=== PATIENT | male | born 1980 | race Caucasian/White ===

== ENCOUNTER 2020-06-13 14:39 | Emergency (ER) | payer MEDICAID, OTHER ==
[~2020-06-13] VITALS: Ht 190.5 cm; Wt 181.4 kg
[2020-06-13 14:47] VITALS: BP_SYST 159
[2020-06-13 15:35] VITALS: BP_SYST 154
== END 2020-06-13 15:35 | disposition home or self-care (01) ==
LOC: SED 14:39
DX: M13.871 Other specified arthritis, right ankle and foot (principal)
CPT/HCPCS: 99283

== ENCOUNTER 2020-08-17 21:16 | Inpatient (IN) | payer OTHER, SELFPAY ==
[~2020-08-17] VITALS: Ht 190.5 cm; Wt 173.7 kg
--- NOTE | 2020-08-17 21:20 | NUR ---
PT TO REMAIN IN ER LOBBY UNTIL ER BED BECOMES AVAILABLE
[2020-08-17 21:25] VITALS: BP_SYST 162
--- NOTE | 2020-08-17 21:25 | NUR ---
PT AAO AND AMBULATORY REPORTING HIGH BLOOD SUGAR TODAY. PT WAS DIAGNOSED WITH DIABETES TODAY AND STARTED TAKING METFORMIN. PT BS HAS REMAINED IN THE 400'S ALL DAY AND PT IS EXCESSIVELY SWEATING AND URINATING.
--- NOTE | 2020-08-17 22:22 | NUR ---
Placed in room 5 . Placed on ekg monitor, blood pressure machine and pulse oximeter. To gown for exam. Side rails up.
--- NOTE | 2020-08-17 22:28 | NUR ---
BG ACCUCHECK 475
[2020-08-17] MEDS ORDERED: NACL 0.9% 1,000 ML IV ONE (22:30)
[2020-08-17 23:00] LABS: BILIRUBIN,URINE NEGATIVE (NEGATIVE); CLARITY/URINE CLEAR (CLEAR); COLOR,URINE YELLOW (YELLOW); GLUCOSE,URINE 3+ (NEGATIVE); KETONES,URINE TRACE (NEGATIVE); LEUKOCYTE ESTERASE ,URINE NEGATIVE (NEGATIVE); NITRITE, URINE NEGATIVE (NEGATIVE); PH,URINE 5.5 (5.0-8.0); PROTEIN URINE 2+ (NEGATIVE); UROBILINOGEN,URINE 0.2 (0.2-1.0)
[2020-08-17 23:03] LABS: BLOOD, URINE TRACE (NEGATIVE)
[2020-08-17 23:04] LABS: ACETONE, URINE 2+ (NEGATIVE)
[2020-08-17 23:15] LABS: BACTERIA,URINE FEW /HPF (None Seen); RBC,URINE 0-3 /HPF (0-3); WBC,URINE 0-3 /HPF (0-3)
[2020-08-17 23:26] LABS: BASOPHILS % (AUTO) 0.5 % (0.0-2.0); EOSINOPHILS # (AUTO) 0.2 K/uL (0.0-0.4); EOSINOPHILS % (AUTO) 1.9 % (0.0-4.0); HEMATOCRIT 47.5 % (36-54); HEMOGLOBIN 16.7 g/dL (14.0-18.0); LYMPHOCYTES % (AUTO) 31.4 % (20.5-51.5); MEAN CORPUSCULAR HEMOGLOBIN 31 pg (27-31); MEAN CORPUSCULAR HGB CONC 35 % (32-36); MEAN CORPUSCULAR VOLUME 88 fL (79.0-98.0); MONOCYTES # (AUTO) 0.9 K/uL (0.0-1.0); MONOCYTES % (AUTO) 9.8 % (1.7-9.3); NEUTROPHILS # (AUTO) 5.4 K/uL (1.8-7.7); NEUTROPHILS % (AUTO) 56.4 % (40.0-70.0); PLATELET COUNT (AUTO) 228 K/uL (130-430); RED BLOOD CELL COUNT(AUTO) 5.42 MIL/uL (4.2-6.2); RED CELL DISTRIBUTION WIDTH 12.8 % (9.0-15.0); WHITE BLOOD COUNT (AUTO) 9.5 K/uL (4.8-10.8)
--- NOTE | 2020-08-17 23:30 | NUR ---
ER at bedside examining patient.
[2020-08-17 23:34] LABS: ANION GAP 10 (5-15); CHLORIDE 92 mmol/L (98-107); POTASSIUM 3.7 mmol/L (3.5-5.1); SODIUM SERUM 130 mmol/L (136-145)
[2020-08-17 23:35] LABS: ALANINE AMINOTRANSFERASE 89 U/L (12-78); ALBUMIN 3.4 g/dL (3.4-4.8); CALCIUM 8.9 mg/dL (8.4-11.0); CREATININE 1.07 mg/dL (0.55-1.30); GFR AFRICAN AMERICAN 99 mL/min (>90); TOTAL BILIRUBIN 0.5 mg/dL (0.0-1.0); UREA NITROGEN, BLOOD 17 mg/dL (8-21)
[2020-08-17 23:36] LABS: GLUCOSE 440 mg/dL (70-99)
--- NOTE | 2020-08-17 23:39 | NUR ---
Critical BG [address] Guerrier
[2020-08-17 23:53] LABS: ACETONE, SERUM SMALL (NEGATIVE)
[2020-08-18 00:05] LABS: ASPARTATE AMINOTRANSFERASE 44 U/L (10-37)
[2020-08-18] MEDS ORDERED: INSULIN REGULAR, HUMAN 10 UNITS/0.1 ML INJ IVP ONE ×4 (01:00→05:15)
[2020-08-18] MEDS ORDERED: NACL 0.9% 1,000 ML IV ONE ×2 (01:00→03:15)
--- NOTE | 2020-08-18 01:45 | NUR ---
naomi Brewer Md made aware
--- NOTE | 2020-08-18 03:00 | NUR ---
Nancy Singer MD made aware.
[2020-08-18] MEDS ORDERED: INSULIN REGULAR, HUMAN 100 UNITS in NS 99 ML IV ONE ×2 (05:15)
[2020-08-18] MEDS ORDERED: INSULIN REGULAR, HUMAN 10 UNITS/0.1 ML INJ ONE (05:33)
--- NOTE | 2020-08-18 05:45 | NUR ---
RECEIVED ADMIT ORDERS FROM DR. SWENSON.
--- NOTE | 2020-08-18 05:45 | NUR ---
Patient will be admitted to care of TIFFANY. Admitted to ICU unit. Will go to room PENDING. CARE WILL BE CONTINUED IN ER UNTIL ROOM IS AVAILABLE. Belongings list completed. Complete and up to date summary report printed. SBAR report to be given at bedside with opportunity for questions.
--- NOTE | 2020-08-18 05:48 | NUR ---
Pt started on heparin drip, at 4 units as per protocol. Accucheck due within 1 hr.
[2020-08-18] MEDS ORDERED: INSULIN REGULAR, HUMAN 100 UNITS in NS 99 ML IV PRN ×2 (06:30)
[2020-08-18] MEDS ORDERED: ALBUTEROL SULFATE 0.083% 2.5 MG/3 ML VIAL.NEB INH PRN (06:30)
[2020-08-18] MEDS ORDERED: NALOXONE HCL 0.4 MG/ML AMP (NARCAN) IVP PRN (06:30)
[2020-08-18] MEDS ORDERED: HYDROcodone/ACETAMIN 5-325 MG TAB (NORCO/ VICODIN) PO PRN (06:30)
[2020-08-18] MEDS ORDERED: DEXTROSE 50% JECT 50 ML DISP.SYRIN IVP PRN (06:30)
--- NOTE | 2020-08-18 06:30 | NUR ---
Accucheck 251. Insulin titrated according to protocol.
--- NOTE | 2020-08-18 07:28 | NUR ---
Report given to Sarah MATUTE for continuation of care
--- NOTE | 2020-08-18 07:30 | NUR ---
Report received from Antonietta MATUTE
--- NOTE | 2020-08-18 07:35 | NUR ---
Current accu check is 288
--- NOTE | 2020-08-18 07:40 | NUR ---
Insulin drip will remain at 2 units.
[2020-08-18 08:01] LABS: BASOPHILS # (AUTO) 0.1 K/uL (0.0-0.2); BASOPHILS % (AUTO) 0.8 % (0.0-2.0); EOSINOPHILS # (AUTO) 0.2 K/uL (0.0-0.4); HEMATOCRIT 45.7 % (36-54); HEMOGLOBIN 15.9 g/dL (14.0-18.0); LYMPHOCYTES % (AUTO) 27.9 % (20.5-51.5); MEAN CORPUSCULAR HEMOGLOBIN 30 pg (27-31); MEAN CORPUSCULAR HGB CONC 35 % (32-36); MEAN CORPUSCULAR VOLUME 88 fL (79.0-98.0); MONOCYTES # (AUTO) 0.7 K/uL (0.0-1.0); MONOCYTES % (AUTO) 9.9 % (1.7-9.3); NEUTROPHILS # (AUTO) 4.3 K/uL (1.8-7.7); NEUTROPHILS % (AUTO) 58.4 % (40.0-70.0); PLATELET COUNT (AUTO) 210 K/uL (130-430); RED BLOOD CELL COUNT(AUTO) 5.22 MIL/uL (4.2-6.2); WHITE BLOOD COUNT (AUTO) 7.3 K/uL (4.8-10.8)
[2020-08-18] MEDS: cefTRIAXone 1 GM in D5W 50 ML IV SCH (08:45)
[2020-08-18] MEDS: NACL 0.9% 1,000 ML IV SCH ×4 (08:45→23:44)
[2020-08-18 09:09] LABS: ALANINE AMINOTRANSFERASE 82 U/L (12-78); ANION GAP 11 (5-15); ASPARTATE AMINOTRANSFERASE 29 U/L (10-37); CHLORIDE 98 mmol/L (98-107); CREATININE 0.85 mg/dL (0.55-1.30); GLUCOSE 267 mg/dL (70-99); PHOSPHORUS 2.8 mg/dL (2.7-4.5); POTASSIUM 3.1 mmol/L (3.5-5.1); SODIUM SERUM 136 mmol/L (136-145); TOTAL BILIRUBIN 0.4 mg/dL (0.0-1.0); UREA NITROGEN, BLOOD 17 mg/dL (8-21)
--- NOTE | 2020-08-18 09:12 | NUR ---
Spoke w/ Dr. James. Pt has been downgraded from ICU to tele
[2020-08-18 09:16] LABS: GFR AFRICAN AMERICAN 129 mL/min (>90)
--- NOTE | 2020-08-18 10:00 | NUR ---
pt moved from ER 5 to H1.
[2020-08-18 12:31] VITALS: BP_SYST 162
[2020-08-18] MEDS: ENOXAPARIN SODIUM 40 MG/0.4 ML SYRINGE SUBCUT SCH (12:43)
[2020-08-18 12:44] LABS: ACETONE, SERUM NEGATIVE (NEGATIVE)
[2020-08-18] MEDS: INSULIN Lispro 100 UNITS/ML VIAL (humaLOG) SUBCUT SCH ×2 (12:48→18:32)
--- NOTE | 2020-08-18 13:00 | NUR ---
pt having lunch in the [facility]
--- NOTE | 2020-08-18 17:44 | NUR ---
BARRIE BS IS 275.
--- NOTE | 2020-08-18 18:39 | NUR ---
MEDICATED THE PT W/ REGULAR INSULIN 5 UNITS
--- NOTE | 2020-08-18 19:17 | NUR ---
REPORT RECIEVED FROM COOKER HELPERGIOVANI MESSINA. COOKER HELPERGIOVANI ROJAS WILL ASSUME CARE
--- NOTE | 2020-08-18 19:22 | NUR ---
Care endorsed to Mae MATUTE.
[2020-08-18] MEDS ORDERED: INSULIN GLARGINE 100 UNITS/ML 10 ML VIAL SUBCUT SCH (21:00)
--- NOTE | 2020-08-18 21:00 | NUR ---
PT HAS STEADY GAIT AND AMBULATED TO RESTROOM WIHTOUT ASSISTANCE
--- NOTE | 2020-08-18 21:02 | NUR ---
PT BACK INTO BED RESTING COMFORTABLY WITH BED IN LOWEST POSITION ADN BOTH SIDE RIALS UP
--- NOTE | 2020-08-18 22:50 | NUR ---
ADMISSION NOTE Received patient from ER via wheelchair. Patient admitted with diagnosis of Diabetic ketoacidosis. Patient is awake, alert, oriented x4. Patient oriented to hospital room, call light, toileting, pain management and safety-teach back done.Personal belongings checked and Belongings List documented. Call light within reach.
--- NOTE | 2020-08-18 22:50 | NUR ---
Transfer to TELE 101B via ACLS protocol. Licensed nurse present. IV present no signs or symptoms of infiltration.
[2020-08-18 23:51] VITALS: BP_SYST 138
[2020-08-19] VITALS: BP_SYST 135
[2020-08-19] MEDS ORDERED: GLUCOSE (DEXTROSE) ORAL GEL -Adults PO PRN (01:45)
[2020-08-19] MEDS ORDERED: D5W 1,000 ML IV PRN (01:45)
[2020-08-19] MEDS ORDERED: DEXTROSE 50% JECT 50 ML DISP.SYRIN IVP PRN (01:45)
[2020-08-19 06:26] LABS: BASOPHILS % (AUTO) 0.7 % (0.0-2.0); EOSINOPHILS # (AUTO) 0.2 K/uL (0.0-0.4); EOSINOPHILS % (AUTO) 3.5 % (0.0-4.0); HEMATOCRIT 43.1 % (36-54); HEMOGLOBIN 14.8 g/dL (14.0-18.0); LYMPHOCYTES # (AUTO) 2.2 K/uL (1.0-5.5); LYMPHOCYTES % (AUTO) 32.2 % (20.5-51.5); MEAN CORPUSCULAR HEMOGLOBIN 31 pg (27-31); MEAN CORPUSCULAR HGB CONC 34 % (32-36); MEAN CORPUSCULAR VOLUME 89 fL (79.0-98.0); MONOCYTES # (AUTO) 0.7 K/uL (0.0-1.0); MONOCYTES % (AUTO) 9.8 % (1.7-9.3); NEUTROPHILS # (AUTO) 3.6 K/uL (1.8-7.7); NEUTROPHILS % (AUTO) 53.8 % (40.0-70.0); PLATELET COUNT (AUTO) 201 K/uL (130-430); RED BLOOD CELL COUNT(AUTO) 4.84 MIL/uL (4.2-6.2); RED CELL DISTRIBUTION WIDTH 12.9 % (9.0-15.0); WHITE BLOOD COUNT (AUTO) 6.8 K/uL (4.8-10.8)
[2020-08-19] MEDS: INSULIN Lispro 100 UNITS/ML VIAL (humaLOG) SUBCUT SCH ×2 (06:42→11:12)
[2020-08-19] MEDS: INSULIN REGULAR, HUMAN 100 UNITS/ML, 10 ML VIAL (humuLIN R) SUBCUT PRN ×2 (06:45→11:13)
[2020-08-19] MEDS: NACL 0.9% 1,000 ML IV SCH (06:56)
[2020-08-19 07:02] LABS: ALBUMIN 2.7 g/dL (3.4-4.8); CALCIUM 7.5 mg/dL (8.4-11.0); CREATININE 0.91 mg/dL (0.55-1.30); POTASSIUM 3.6 mmol/L (3.5-5.1); TOTAL BILIRUBIN 0.4 mg/dL (0.0-1.0)
--- NOTE | 2020-08-19 07:09 | NUR ---
CLOSING NOTE: PATIENT IS IN BED, AWAKE. MORNING ACCUCHEK IS 310 MG/DL. ACTION INITIATED PER PROTOCOL. PATIENT DENIES PAIN. RESPIRATION IS EVEN AND UNLABORED ON RA. NO S/S ACUTE DISTRESS NOTED. SAFETY AND FALL PRECAUTIONS IN PLACE. CALL LIGHT IS WITH PATIENT. WILL ENDORSE PATIENT CARE TO DAY SHIFT RN.
[2020-08-19 08:00] VITALS: BP_SYST 149
[2020-08-19] MEDS ORDERED: INSU100V SUBCUT (08:19)
[2020-08-19] MEDS ORDERED: INSU100V9 SUBCUT (08:19)
[2020-08-19] MEDS ORDERED: DAPA5TAB PO (08:19)
--- NOTE | 2020-08-19 09:00 | NUR ---
Notes- awake, ambulate with steady gait. Seen By Dr. James, patient aware of discharge order. Patient stated that he is comfortable giving insulin to his self and ready to go home. he was thought this morning in administering insulin to himself.
[2020-08-19] MEDS: ENOXAPARIN SODIUM 40 MG/0.4 ML SYRINGE SUBCUT SCH (09:05)
[2020-08-19] MEDS: cefTRIAXone 1 GM in D5W 50 ML IV SCH (09:06)
--- NOTE | 2020-08-19 10:24 | NUR ---
notes- [employer] Operator at bedside doing diabetic teachings.
[2020-08-19 10:56] VITALS: BP_SYST 149
--- NOTE | 2020-08-19 11:01 | NUR ---
Notes- Patient wants to go home now. will prefer paper work
--- NOTE | 2020-08-19 11:48 | NUR ---
Dietitian Recommendations *Recommend continue [facility] Diet Please see Nutrition Assessment for details. EP,RD
--- NOTE | 2020-08-19 12:45 | NUR ---
Discharge patient home after eating lunch, ambulate with steady gait. Denies any pain or discomfort. discharge instruction and follow up care discussed with patient. E-script was sent to patient pharmacy. IVL removed.
== END 2020-08-19 12:10 | disposition home or self-care (01) | DRG 638 ==
LOC: SED 21:16 → SIC 08-18 05:44 → STU 08-18 22:36
PROVIDERS: ADMIT Internal Medicine Hospice and Palliative Medicine; ATTEND Internal Medicine Hospice and Palliative Medicine
DX: E11.65 Type 2 diabetes mellitus with hyperglycemia (principal); N39.0 Urinary tract infection, site not specified; R35.8 Other polyuria; R63.1 Polydipsia; I10 Essential (primary) hypertension; Z20.828 Contact with and (suspected) exposure to other viral communicable diseases; Z79.4 Long term (current) use of insulin; Z83.3 Family history of diabetes mellitus
CPT/HCPCS: 36415; 80053; 81000-TC; 82009-TC; 82962; 83036; 83735-TC; 84100-TC; 85025; 93005; 94003; 96361; 96365; 96375; 96376; 99285; G0378; J0696; J1650; J1815; J7030; J7060

== ENCOUNTER 2023-10-27 21:04 | Emergency (ER) | payer OTHER ==
[~2023-10-27] VITALS: Ht 190.5 cm; Wt 170.1 kg
[~2023-10-27 21:04] MED LIST: DAPA5TAB PO; INSU100V SUBCUT; INSU100V9 SUBCUT
[2023-10-27 21:09] VITALS: BP_SYST 171; PULSE 83; RESP 24; TEMP 98; O2SAT 97
[2023-10-27 22:05] LABS: BASOPHILS # (AUTO) 0.1 K/uL (0.0-0.2); BASOPHILS % (AUTO) 0.5 % (0.0-2.0); EOSINOPHILS # (AUTO) 0.3 K/uL (0.0-0.4); EOSINOPHILS % (AUTO) 2.5 % (0.0-4.0); HEMATOCRIT 45.6 % (36-54); HEMOGLOBIN 15.9 g/dL (14.0-18.0); LYMPHOCYTES # (AUTO) 3.1 K/uL (1.0-5.5); LYMPHOCYTES % (AUTO) 28.6 % (20.5-51.5); MEAN CORPUSCULAR HEMOGLOBIN 30 pg (27-31); MEAN CORPUSCULAR HGB CONC 35 % (32-36); MEAN CORPUSCULAR VOLUME 85 fL (79.0-98.0); MONOCYTES # (AUTO) 0.9 K/uL (0.0-1.0); MONOCYTES % (AUTO) 7.9 % (1.7-9.3); NEUTROPHILS # (AUTO) 6.6 K/uL (1.8-7.7); NEUTROPHILS % (AUTO) 60.5 % (40.0-70.0); PLATELET COUNT (AUTO) 247 K/uL (130-430); RED BLOOD CELL COUNT(AUTO) 5.34 MIL/uL (4.2-6.2); RED CELL DISTRIBUTION WIDTH 12.6 % (9.0-15.0)
[2023-10-27 22:18] LABS: ANION GAP 7 (5-15); CALCIUM 9.3 mg/dL (8.4-11.0); CARBON DIOXIDE 32 mmol/L (23-29); CHLORIDE 102 mmol/L (98-107); CREATININE 1.07 mg/dL (0.55-1.30); GFR AFRICAN AMERICAN 97 mL/min (>90); GLUCOSE 180 mg/dL (74-106); POTASSIUM 3.6 mmol/L (3.5-5.1); SODIUM SERUM 141 mmol/L (136-145); UREA NITROGEN, BLOOD 20 mg/dL (8-21)
[2023-10-27 22:19] LABS: GFR NON AFRICAN-AMERICAN 81 mL/min (>90)
[2023-10-27 22:21] LABS: INR 0.9 (0.80-1.20); PROTHROMBIN TIME 9.4 SECS (9.5-12.5)
[2023-10-27 22:32] LABS: ALANINE AMINOTRANSFERASE 52 U/L (12-78); ALBUMIN 3.6 g/dL (3.4-4.8); AMYLASE 23 U/L (0-100); ASPARTATE AMINOTRANSFERASE 25 U/L (10-37); BILIRUBIN,DIRECT 0.1 mg/dL (0.0-0.3); LIPASE 20 U/L (16-77); TOTAL BILIRUBIN 0.4 mg/dL (0.0-1.0); TOTAL PROTEIN, SERUM 7.4 g/dL (6.4-8.3)
[2023-10-27 23:42] VITALS: BP_SYST 136; PULSE 69; RESP 16; TEMP 98.1; O2SAT 98
== END 2023-10-27 23:08 | disposition left against medical advice (07) ==
LOC: SED 21:04
DX: R07.9 Chest pain, unspecified (principal); R10.30 Lower abdominal pain, unspecified; E11.9 Type 2 diabetes mellitus without complications; I10 Essential (primary) hypertension; Z79.899 Other long term (current) drug therapy
CPT/HCPCS: 36415; 71045; 80048; 80076; 82150; 82948; 83605; 83690; 84484; 85025; 85610; 85730; 93005; 99285